=== PATIENT | female | born 2000 | race Hispanic/Latino ===

== ENCOUNTER 2023-06-12 23:38 | Observation (INO) | payer SELFPAY ==
[2023-06-13 01:05] VITALS: BMI 26.9
[2023-06-13 02:42] LABS: Creatinine, Urine Less than 20.00 mg/dL (47-110); Protein, Urine Random Quant Less than 10 mg/dL (1-14)
== END 2023-06-13 03:22 | disposition home or self-care (01) ==
LOC: CSHLD 06-13 00:28
PROVIDERS: ADMIT Obstetrics & Gynecology; ATTEND Obstetrics & Gynecology
DX: O99.891 Other specified diseases and conditions complicating pregnancy (principal); R55 Syncope and collapse; O36.8130 Decreased fetal movements, third trimester, not applicable or unspecified; Z79.899 Other long term (current) drug therapy; Z98.890 Other specified postprocedural states; Z3A.29 29 weeks gestation of pregnancy
CPT/HCPCS: 82570; 84156

== ENCOUNTER 2023-08-26 06:30 | Inpatient (IN) | payer OTHER ==
[2023-08-26 06:44] VITALS: BMI 28.7
[2023-08-26] MEDS: Lactated Ringer's 1,000 ML IV SCH ×2 (07:30→09:31)
[2023-08-26] MEDS ORDERED: Promethazine HCl 25 MG/ML VIAL IM PRN ×2 (07:53→09:15)
[2023-08-26] MEDS ORDERED: Ibuprofen 800 MG TAB PO PRN (07:53)
[2023-08-26] MEDS ORDERED: Ondansetron PF 4 MG/2 ML Vial IVP PRN ×3 (07:53→14:02)
[2023-08-26] MEDS ORDERED: fentaNYL 50 mcg/mL 1 mL Vial SLOW IVP PRN (07:53)
[2023-08-26] MEDS ORDERED: hydrALAZINE 20 MG/ML VIAL SLOW IVP PRN ×3 (07:53→14:02)
[2023-08-26] MEDS ORDERED: Lidocaine 1% (PF) 30 ML VIAL SC PRN (07:53)
[2023-08-26] MEDS ORDERED: HYDROcodone/Acetaminophen 5/325 mg Tablet PO PRN ×4 (07:53→19:42)
[2023-08-26] MEDS ORDERED: Lorazepam 2 MG/ML VIAL SLOW IVP PRN (07:55)
[2023-08-26] MEDS ORDERED: Calcium Gluc 4.6 MEQ/10 ML (100 MG/ML) SLOW IVP PRN (07:55)
[2023-08-26] MEDS ORDERED: Labetalol HCl 100 MG/20 ML VIAL SLOW IVP PRN ×2 (07:55)
[2023-08-26] MEDS ORDERED: hydrALAZINE 20 MG/ML VIAL ONE (07:57)
[2023-08-26] MEDS ORDERED: Magnesium Sulfate 20 gm/500 ml 20 GM/500 ML BAG ONE (07:57)
[2023-08-26] MEDS ORDERED: Oxytocin 30 units/NS 500 ML 500 ML IV SCH ×4 (08:00→14:15)
[2023-08-26] MEDS: Magnesium Sulfate 20 gm/500 ml 20 GM/500 ML BAG IVPB SCH ×2 (08:05→17:33)
[2023-08-26 08:07] LABS: Hematocrit 38.4 % (34.9-44.5); Hemoglobin 12.9 g/dL (12.0-15.5); Mean Corpuscular HGB CONC 33.6 g/dL (32.0-36.0); Mean Corpuscular Hemoglobin 26.8 pg (27.0-33.0); Mean Corpuscular Volume 79.8 fl (81.6-98.3); Mean Platelet Volume 12.3 fl (7.4-10.4); Platelet Count 172 10x3/uL (150-450); RBC Distribution Width 18.6 % (11.5-14.5); Red Blood Cell (RBC) Count 4.81 10x6/uL (3.90-5.03); White Blood Cell (WBC) Count 15.7 10x3/uL (3.5-10.5)
[2023-08-26] MEDS ORDERED: fentaNYL/Ropivacaine Epidural 100 ML ONE (08:15)
[2023-08-26 08:46] LABS: ALT (SGPT) 14 U/L (8-55); AST (SGOT) 16 U/L (5-34); Albumin 3.8 g/dL (3.5-5.0); Alkaline Phosphatase 170 U/L (40-110); Anion Gap 17 mmol/L (10-20); BUN (Urea Nitrogen) 11 mg/dL (7.0-18.7); Bilirubin, Total 0.3 mg/dL (0.2-1.2); Calc. Creatinine Clearance 146 mL/min (70-130); Calcium 9.3 mg/dL (7.8-10.44); Carbon Dioxide 18 mmol/L (22-29); Chloride 106 mmol/L (98-107); Estimated GFR 126; Glucose 88 mg/dL (70-105); Protein, Total 6.8 g/dL (6.0-8.3); Sodium 137 mmol/L (136-145)
[2023-08-26 09:04] LABS: Syphilis Antibody Nonreactive (Nonreactive); Syphilis Antibody Index 0.03 S/CO (<1.00 Non-Reactive)
[2023-08-26 09:05] LABS: HBSAg Index 0.19 S/CO (0-0.99); Hep B Surf Ag - L&D Non-Reactive S/CO (NonReactive)
[2023-08-26] MEDS ORDERED: diphenhydrAMINE 50 MG/ML VIAL IVP PRN (09:15)
[2023-08-26] MEDS ORDERED: Communication Order-Pharmacy FS SCH (09:15)
[2023-08-26] MEDS ORDERED: Moisturizing Cream (Eucerin) 113 GM JAR TOP PRN (09:15)
[2023-08-26] MEDS ORDERED: fentaNYL 2 mcg/Ropivacaine 0.2% Epidural 100 ML CADD EPIDURAL SCH (09:15)
[2023-08-26] MEDS ORDERED: Acetaminophen 325 MG TAB PO PRN (09:15)
[2023-08-26] MEDS ORDERED: Lactated Ringer's 500 ML IV PRN (09:15)
[2023-08-26] MEDS ORDERED: ePHEDrine Sulfate 50 MG/10 ML VIAL SLOW IVP PRN (09:15)
[2023-08-26] MEDS ORDERED: Naloxone HCl 0.4 mg/ml Vial IVP PRN ×2 (09:15)
[2023-08-26] MEDS ORDERED: Misoprostol 200 MCG TAB ONE ×2 (13:52→13:56)
[2023-08-26] MEDS ORDERED: Tranexamic Acid 1,000 MG/10 ML VIAL ONE (13:52)
[2023-08-26] MEDS ORDERED: Carboprost 250 MCG/ML AMP ONE (13:52)
[2023-08-26] MEDS ORDERED: Benzocaine-Menthol 82.5 ML CAN TOP PRN (14:02)
[2023-08-26] MEDS ORDERED: Boostrix 0.5 ML (Tdap) VIAL (>/=7 yrs of age) IM ONE (14:02)
[2023-08-26] MEDS ORDERED: Milk Of Magnesia 30 ML UDCUP PO PRN (14:02)
[2023-08-26] MEDS ORDERED: Bisacodyl 10 MG SUPP PR PRN (14:02)
[2023-08-26] MEDS ORDERED: diphenhydrAMINE 25 MG CAP PO PRN (14:02)
[2023-08-26] MEDS ORDERED: Preparation H Ointment 28 GM TUBE PR PRN (14:02)
[2023-08-26] MEDS ORDERED: Lanolin Ointment 7 GM TUBE TOP PRN (14:02)
[2023-08-26] MEDS: Ferrous Sulfate 325 MG TAB PO SCH (19:24)
[2023-08-26] MEDS: Ibuprofen 800 MG TAB PO SCH (19:27)
[2023-08-27] MEDS: Magnesium Sulfate 20 gm/500 ml 20 GM/500 ML BAG IVPB SCH (03:37)
[2023-08-27] MEDS: Docusate 100 MG CAP PO SCH ×3 (05:43→21:27)
[2023-08-27] MEDS: Lactated Ringer's 1,000 ML IV SCH ×2 (05:44→08:36)
[2023-08-27] MEDS: Ibuprofen 800 MG TAB PO SCH ×3 (05:54→21:28)
[2023-08-27] MEDS: Ferrous Sulfate 325 MG TAB PO SCH ×2 (07:52→17:07)
[2023-08-27] MEDS ORDERED: Prenatal Vitamin 1 TAB PO SCH (09:00)
[2023-08-27] MEDS ORDERED: Lanolin Ointment 7 GM TUBE TOP PRN (12:57)
[2023-08-27] MEDS ORDERED: Milk Of Magnesia 30 ML UDCUP PO PRN (12:57)
[2023-08-27] MEDS ORDERED: hydrALAZINE 20 MG/ML VIAL SLOW IVP PRN (12:57)
[2023-08-27] MEDS ORDERED: Preparation H Ointment 28 GM TUBE PR PRN (12:57)
[2023-08-27] MEDS ORDERED: Bisacodyl 10 MG SUPP PR PRN (12:57)
[2023-08-27] MEDS ORDERED: HYDROcodone/Acetaminophen 5/325 mg Tablet PO PRN ×2 (12:57)
[2023-08-27] MEDS ORDERED: Ondansetron PF 4 MG/2 ML Vial IVP PRN (12:57)
[2023-08-27] MEDS ORDERED: Boostrix 0.5 ML (Tdap) VIAL (>/=7 yrs of age) IM ONE (12:57)
[2023-08-27] MEDS ORDERED: Benzocaine-Menthol 82.5 ML CAN TOP PRN (12:57)
[2023-08-27] MEDS ORDERED: NIFEdipine XL 30 MG ER.TAB PO SCH (16:45)
[2023-08-28] MEDS: Ibuprofen 800 MG TAB PO SCH ×2 (05:30→14:20)
[2023-08-28] MEDS: Ferrous Sulfate 325 MG TAB PO SCH (08:25)
[2023-08-28] MEDS: Docusate 100 MG CAP PO SCH (08:25)
[2023-08-28] MEDS ORDERED: Prenatal Vitamin 1 TAB PO SCH (09:00)
[2023-08-28 11:36] VITALS: BP 133/88; TEMP 98.2
== END 2023-08-28 16:30 | disposition home or self-care (01) | DRG 807 ==
LOC: CSHLD/OP 06:30 → CSHLD 07:20 → CSHPP 08-27 13:25
PROVIDERS: ADMIT Obstetrics & Gynecology; ATTEND Obstetrics & Gynecology
PROC: 10E0XZZ Delivery of Products of Conception, External Approach (ICD-10-PCS; principal; 2023-08-26)
PROC: 0HQ9XZZ Repair Perineum Skin, External Approach (ICD-10-PCS; 2023-08-26)
DX: O14.14 Severe pre-eclampsia complicating childbirth (principal); Z37.0 Single live birth; O13.4 Gestational [pregnancy-induced] hypertension without significant proteinuria, complicating childbirth; Z3A.40 40 weeks gestation of pregnancy; O70.0 First degree perineal laceration during delivery; O69.81X0 Labor and delivery complicated by cord around neck, without compression, not applicable or unspecified
CPT/HCPCS: 36415; 51702; 80053; 85027; 86780; 86850; 86900; 86901; 87340; 99285; J0360; J2590; J3475; J7120